=== PATIENT | male | born 1975 | race Caucasian/White ===

== ENCOUNTER 2020-07-26 09:37 | Outpatient (REF) | payer SELFPAY ==
[2020-07-26 10:14] LABS: MANUAL DIFF FLAG NO
[2020-07-26 10:19] LABS: Basophils Percent Auto 0.3 % (0-2); Eosinophils Absolute Auto 0.1 X10*3/uL (0.0-0.4); Eosinophils Percent Auto 1.5 % (0-4); Hematocrit 41.4 % (42-52); Hemoglobin 13.5 g/dl (14.0-18.0); Imm Gran Abs Auto 0.01 X10*3/uL (0.00-0.03); Imm Gran Pct Auto 0.2 % (0.0-0.4); Lymphocytes Absolute Auto 1.8 X10*3/uL (1.2-4.9); Mean Corpuscular HGB Conc 32.6 g/dl (31.0-36.0); Mean Corpuscular Hemoglobin 29.2 pg (27.0-33.0); Mean Corpuscular Volume 89.4 fL (80-98); Mean Platelet Volume 10.6 fL (9.4-12.4); Monocytes Absolute Auto 0.5 X10*3/uL (0.1-1.2); Monocytes Percent Auto 7.7 % (2-11); Neutrophils Absolute Auto 3.8 X10*3/uL (2.0-8.3); Neutrophils Percent Auto 61.3 % (45-73); Platelet Count 265 X10*3/uL (160-400); Red Blood Count 4.63 X10*6/uL (4.60-5.80); Red Cell Distribution Width 13.5 % (11.0-16.0); White Blood Count 6.1 X10*3/uL (4.8-10.8)
[2020-07-26 10:37] LABS: Alanine Aminotransferase 19 U/L (0-40); Albumin Level 4.8 g/dL (3.5-5.0); Alkaline Phosphatase 49 U/L (39-117); Anion Gap 14 (12-20); Aspartate Amino Transferase 20 U/L (5-37); Bilirubin Total 0.4 mg/dL (0.0-1.0); Blood Urea Nitrogen 16 mg/dL (9-16); Calcium 9.3 mg/dL (8.4-10.2); Carbon Dioxide 26 mmol/L (22-29); Chloride 104 mmol/L (96-108); Cholesterol 227 mg/dL; Estimated Glomerular Filt Rate > 60; Glucose Fasting 91 mg/dL (60-99); HDL Cholesterol 48 mg/dL; LDL Cholesterol Calculated 165 mg/dl; Potassium 4.8 mmol/l (3.3-5.1); Sodium 139 mmol/L (135-145); Total Protein 7.4 g/dL (6.5-8.0); Triglycerides 73 mg/dL
== END 2020-07-26 09:38 | disposition home or self-care (01) ==
LOC: HO.LAB 09:37
PROVIDERS: PCP Internal Medicine; Visit Provider Internal Medicine
DX: Z00.00 Encounter for general adult medical examination without abnormal findings (principal)
CPT/HCPCS: 36415; 80053; 80061; 85025

== ENCOUNTER 2021-05-07 09:00 | Outpatient (REF) | payer BC, SELFPAY ==
--- NOTE | ~2021-05-07 | XR_ITS ---
EXAMINATION: XR SHOULDER, LEFT CLINICAL INFORMATION: Left shoulder pain. COMPARISON: None TECHNIQUE: AP, scapular Y, and axillary views of the left shoulder. FINDINGS: The bones and soft tissues are normal. No fracture. Glenohumeral and acromioclavicular alignment is anatomic with normal joint space. No abnormal soft tissue calcifications. XR/XR shoulder LT min 2V IMPRESSION: Unremarkable examination.
== END 2021-05-07 09:01 | disposition home or self-care (01) ==
LOC: HO.HOSX 09:00
PROVIDERS: Visit Provider Physician Assistant
DX: M75.102 Unspecified rotator cuff tear or rupture of left shoulder, not specified as traumatic (principal)
CPT/HCPCS: 20610; 73030; J1040

== ENCOUNTER 2021-06-22 09:07 | Outpatient (REF) | payer BC, SELFPAY ==
--- NOTE | ~2021-06-22 | XR_ITS ---
EXAMINATION: RIGHT WRIST X-RAY CLINICAL INFORMATION: Fracture COMPARISON: Previous x-ray and CT of the wrist to from 2013 TECHNIQUE: 4 views of the wrist FINDINGS: There is a transverse fracture of the right distal radius. This appears comminuted with vertical component intra-articular with the radiocarpal joint. Fracture is minimally displaced. There is slight dorsal angulation of the distal radius with respect to the more proximal shaft. No other fracture is seen. Carpal bones are normal. There is overlying soft tissue swelling. XR/XR wrist RT w scaphoid IMPRESSION: Comminuted impacted intra-articular fracture of the right distal radius and overlying soft tissue swelling.
== END 2021-06-22 09:08 | disposition home or self-care (01) ==
LOC: HO.HOSX 09:07
PROVIDERS: PCP Internal Medicine; Visit Provider Physician Assistant
DX: Z01.818 Encounter for other preprocedural examination (principal); S52.501D Unspecified fracture of the lower end of right radius, subsequent encounter for closed fracture with routine healing
CPT/HCPCS: 73110

== ENCOUNTER 2021-06-25 10:14 | Day surgery (SDC) | payer BC, SELFPAY ==
--- NOTE | 2021-06-24 08:53 | P.CONAN_ITS ---
Documented by User: Nathalie Wheeler NP 06/24/21 08:53 HPI - Anesthesia Eval Consult details Narrative: 45yo M for Right Radius Distal Fracture ORIF [facility] Active Problems Active Problems: All Active Problems (Updated 06/22/21 @ 10:39 by Olive Perez PA-C) Distal radius fracture, right (Acute) Painful arc syndrome of left shoulder (Acute) Social History Social History Patient Tobacco Use Status: Former Tobacco user Use of substances other than those prescribed or required for medical reasons: Yes Are you DNR?: No Advance Directives: No Advance Directives Information Provided: Yes Recently lost weight without trying: No Nutrition Risks: No Nutritional Risk Current occupational status: unemployed Current occupation: rt hand Meds Allergies Allergy/AdvReac Type Severity Reaction Status Date / Time No Known Allergies Allergy Verified 06/22/21 09:40 Exam Exam Date and Time: June 24, 2021 0853 Assessment and Plan Assessment Anesthesia Assessment: Chart Reviewed Documented by User: Julianna Weston MD 06/25/21 12:21 [facility] Family History Family history of problems with anesthesia: No Surgical History History of Problems with Anesthesia: No Social History Social History Patient Tobacco Use Status: Former Tobacco user Use of substances other than those prescribed or required for medical reasons: Yes Are you DNR?: No Advance Directives: No Advance Directives Information Provided: Yes Recently lost weight without trying: No Nutrition Risks: No Nutritional Risk Current occupational status: unemployed Current occupation: rt hand Meds Allergies Allergy/AdvReac Type Severity Reaction Status Date / Time No Known Allergies Allergy Verified 06/22/21 09:40 Exam Airway Mallampati Class: II TM Dist: >3cm Neck ROM: Full Assessment and Plan Final Anesthetic Review Family History of Problems with Anesthesia: No History of Problems with Anesthesia: No NPO: Yes ASA Class: I Final Preanesthetic Review: No Changes in Pt Med Stat, Meds/Allgs Chart Reviewed, Consent Obtained/Reviewed and Anes Risks/Benef Reviewed Patient Risk: Low Procedure Risk: Low Anesthetic Plan Anesthetic Plan: GA and Regional Block Disposition: Standard PACU
[2021-06-25] VITALS (7 sets, daily range): BP systolic 120–135; BP diastolic 72–80; PULSE 67–83; RESP 16; TEMP 36.7; O2SAT 93–97; BMI 29.9
--- NOTE | ~2021-06-25 | FL_ITS ---
EXAMINATION: XR FLUOROSCOPY WITH IMAGES CLINICAL INFORMATION: Distal radius fracture ORIF COMPARISON: 06/22/2021 TECHNIQUE: Fluoroscopy performed by Dr. Matthews. Fluoroscopy time: 34.7 seconds DAP: 44811.9 uGycm2 Images: 2 FINDINGS: There is plate and screw fixation of the distal radial metaphyseal fracture. Alignment is near-anatomic. FL/FL guidance in OR IMPRESSION: Fluoroscopic guidance for internal fixation of the distal radial fracture with near-anatomic alignment. Please refer to operative report for further information.
--- NOTE | 2021-06-25 09:57 | P.OP_ITS ---
Operative Note Operative Note Date of Service: 06/25/21 Narrative: Operative Note Narrative: Preop diagnosis: 1. Right Distal radius fracture Postop diagnosis: Same Procedure: 1. Right Distal radius fracture open reduction internal fixation Surgeon: Sonia Matthews MD Anesthesia: Mac plus regional block Findings: Distal Radius fracture Implants: A 3 hole Accu Med volar locking plate, with 5 X 2.3 mm locking pegs/screws, and 3 3.5 mm cortical screws Tourniquet time: 39 minutes EBL: 5.0 ml Specimen: None Drains: None Complications: None Disposition: Brought to the recovery room in stable condition Plan: Follow-up in 10-14 days for wound check, suture removal and postop radiographs The patient will be placed in either a short-arm cast or a volar wrist splint. Encouraged no lifting of anything heavier than a cell phone. Please encourage active and passive range of motion of the digits. Follow-up at 4-5 weeks postop for repeat radiographs. Indications: The patient is a 45 year old man with a right comminuted intra- articular distal radius fracture . The risks and benefits of operative treatment, including but not limited to risk of damage to blood vessels, nerves, tendons, infection, recurrence, persistent pain or numbness, incomplete resolution of preoperative symptoms, or need for further surgery were discussed with the patient and they wished to proceed with surgery. Procedure: Once consent was obtained patient was brought back to the operating suite and placed in the operating table in a supine position. A regional block was performed by the anesthesia team. Perioperative antibiotics and anesthesia was administered by the anesthesia team. A tourniquet was applied to the proximal aspect of the right upper extremity and the limb was prepped and draped in a standard surgical fashion. The limb was elevated exsanguinated with Esmarch bandage and the tourniquet inflated to 250 mm of mercury for a total tourniquet time of 39 minutes. The FluoroScan was used throughout the case to assess our reduction, and f acilitate implant placement. A gentle closed reduction was 1st performed on the patient's right distal radius fracture. Was assessed radiographically before proceeding with the reduction internal fixation. I then made an 8 cm longitudinal incision over the distal aspect of the flexor carpi radialis tendon. The incision was made through the skin to the subcutaneous tissue using a 15. Blade. Then carefully dissected down to flexor carpi radialis tendon she tenotomy scissors. The FCR tendon sheath was then incised longitudinally using tenotomy scissors under direct visualization. The FCR tendon was then retracted ulnarly. I then made a longitudinal incision in the volar forearm fascia through the floor of FCR tendon sheath using tenotomy scissors under direct visualization. I identified the interval between the radial artery and the flexor tendons. This interval was developed further with my index finger, releasing some of the muscular fibers of the flexor pollicis longus. A dull weatlander retractor was then placed. I then created an ulnarly based flap of the pronator quadratus by releasing the radial and distal edges using a 15. Blade. A Nassar elevator was used to elevate the pronator quadratus from the volar surface of the distal radius. This then revealed to us our distal radius fracture. An open reduction was then performed on our distal radius fracture. I then placed a short standard 3 hole Accu Med volar locking plate on the volar surface of the distal radius. I placed a single K-wire through the distal aspect of the plate and into the distal radius. This was assessed using fluoroscopic images. I was satisfied with the placement of our plate. I then placed 5 X 2.3 mm locking screws/pegs in the distal aspect of the plate and distal radius by 1st drilling bicortically with a 1.8 mm drill bit, measuring with a depth gauge, and placing the appropriate length locking screws/pegs. The placement of our plate and screws was then assessed again using fluoroscopic images. The once satisfied with the placement of the volar locking plate and screws on the distal aspect of the distal radius, the plate was then reduced to the shaft of the radius. I then placed 3 3.5 mm cortical screws to the proximal aspect of the plate and into the shaft of the radius. This was done by 1st drilling bicortically with a 2.8 mm drill bit, measuring with a depth gauge, and placing the appropriate length screw. Final radiographs were then obtained. The DRUJ was assessed and found to be stable on exam. I was satisfied with our reduction and placement of all implants. At this point the wound was irrigated with normal saline. The pronator quadratus was reduced back over the volar locking plate using some 3-0 Vicryl suture material. The tourniquet was then deflated and hemostasis was obtained with a brief period of local pressure and bipolar monopolar electrocautery. The subcutaneous layer was then reapproximated using some 4-0 Vicryl suture, and the skin edges were reapproximated using some 5 0 Prolene suture. The wound was then infiltrated with some 1% lidocaine with epinephrine postop pain control. A sterile dressing and a short dorsal splint allowing for active flexion and extension of the digits was applied. The patient appears to have tolerated the procedure well and with no complications. All digits were well vascularized conclusion of the case.
[2021-06-25] MEDS: Lactated Ringers 1,000 ML 100 ML IVCONT (10:49)
== END 2021-06-25 15:41 | disposition home or self-care (01) ==
PROVIDERS: PCP Internal Medicine; Visit Provider Orthopaedic Surgery
PROC: (CPT 25608; principal; 2021-06-25 11:50)
DX: S52.571A Other intraarticular fracture of lower end of right radius, initial encounter for closed fracture (principal); W00.0XXA Fall on same level due to ice and snow, initial encounter; Y93.23 Activity, snow (alpine) (downhill) skiing, snowboarding, sledding, tobogganing and snow tubing; Y92.9 Unspecified place or not applicable; Y99.8 Other external cause status
CPT/HCPCS: 25608; C1713; C1769; J0690; J1100; J2250; J2405; J3010

== ENCOUNTER 2021-07-08 08:26 | Outpatient (REF) | payer BC, SELFPAY ==
--- NOTE | ~2021-07-08 | XR_ITS ---
EXAMINATION: XR WRIST, RIGHT CLINICAL INFORMATION: Pain in right wrist COMPARISON: 06/22/2021 TECHNIQUE: PA, lateral, and oblique views of the right wrist. FINDINGS: Volar plate and screws identified across the comminuted distal radial intra-articular fracture which is in near anatomic alignment. The distal ulna and carpal bones are unremarkable without additional bony findings. Moderate soft tissue swelling. XR/XR wrist RT min 3V IMPRESSION: Near-anatomic alignment of the intra-articular fracture distal radius post ORIF. Normal radiocarpal alignment. Moderate soft tissue swelling is present lateral and anterior to the distal radius, correlate clinically.
== END 2021-07-08 08:27 | disposition home or self-care (01) ==
LOC: HO.HOSX 08:26
PROVIDERS: Visit Provider Orthopaedic Surgery
DX: M25.531 Pain in right wrist (principal); S52.501A Unspecified fracture of the lower end of right radius, initial encounter for closed fracture; W00.0XXA Fall on same level due to ice and snow, initial encounter; Y93.23 Activity, snow (alpine) (downhill) skiing, snowboarding, sledding, tobogganing and snow tubing; Y92.9 Unspecified place or not applicable; Y99.8 Other external cause status; Z87.891 Personal history of nicotine dependence; Z48.02 Encounter for removal of sutures
CPT/HCPCS: 73110

== ENCOUNTER 2021-08-05 08:20 | Outpatient (REF) | payer BC, SELFPAY ==
--- NOTE | ~2021-08-05 | XR_ITS ---
EXAMINATION: XR WRIST, RIGHT CLINICAL INFORMATION: Follow-up fracture COMPARISON: Previous x-rays most recent June 2021 TECHNIQUE: PA, lateral, and oblique views of the right wrist. FINDINGS: There is orthopedic hardware with plate and screws seen in the distal radius transfixing a comminuted intra-articular nondisplaced distal radius fracture. Orthopedic hardware and fracture appear unchanged. No other fracture is seen. Joint spaces are normal. There is soft tissue swelling adjacent to the fracture. XR/XR wrist RT min 3V IMPRESSION: ORIF of right distal radius fracture. No change compared to June 2021 exam.
== END 2021-08-05 08:21 | disposition home or self-care (01) ==
LOC: HO.HOSX 08:20
PROVIDERS: Visit Provider Orthopaedic Surgery
DX: S52.501D Unspecified fracture of the lower end of right radius, subsequent encounter for closed fracture with routine healing (principal); X58.XXXD Exposure to other specified factors, subsequent encounter; Z87.891 Personal history of nicotine dependence
CPT/HCPCS: 73110

== ENCOUNTER 2021-10-16 07:22 | Outpatient (REF) | payer BC, SELFPAY ==
[2021-10-16 07:34] LABS: MANUAL DIFF FLAG NO
[2021-10-16 08:08] LABS: Basophils Percent Auto 0.7 % (0-2); Eosinophils Absolute Auto 0.1 X10*3/uL (0.0-0.4); Eosinophils Percent Auto 2.4 % (0-4); Hematocrit 39.6 % (42.0-52.0); Hemoglobin 12.5 g/dl (14.0-18.0); Imm Gran Abs Auto 0.01 X10*3/uL (0.00-0.03); Imm Gran Pct Auto 0.2 % (0.0-0.4); Lymphocytes Absolute Auto 1.8 X10*3/uL (1.2-4.9); Lymphocytes Percent Auto 41.9 % (20-40); Mean Corpuscular HGB Conc 31.6 g/dl (31.0-36.0); Mean Corpuscular Hemoglobin 29.1 pg (27.0-33.0); Mean Corpuscular Volume 92.1 fL (80.0-98.0); Mean Platelet Volume 10.6 fL (9.4-12.4); Monocytes Absolute Auto 0.4 X10*3/uL (0.1-1.2); Neutrophils Absolute Auto 1.9 x10*3/uL (2.0-8.3); Neutrophils Percent Auto 45.8 % (45-73); Platelet Count 224 X10*3/uL (160-400); Red Cell Distribution Width 13.2 % (11.0-16.0); White Blood Count 4.2 X10*3/uL (4.8-10.8)
[2021-10-16 08:39] LABS: Alanine Aminotransferase 28 U/L (0-40); Albumin Level 4.4 g/dL (3.5-5.0); Alkaline Phosphatase 48 U/L (39-117); Anion Gap 11 (12-20); Aspartate Amino Transferase 40 U/L (5-37); Bilirubin Total 0.8 mg/dL (0.0-1.0); Blood Urea Nitrogen 14 mg/dL (9-16); Calcium 9.5 mg/dL (8.4-10.2); Carbon Dioxide 26 mmol/L (22-29); Chloride 107 mmol/L (96-108); Cholesterol 191 mg/dL; Estimated Glomerular Filt Rate > 60; Glucose Random 88 mg/dL (60-115); HDL Cholesterol 53 mg/dL; LDL Cholesterol Calculated 127 mg/dl; Potassium 4.4 mmol/L (3.3-5.1); Sodium 140 mmol/L (135-145); Total Protein 6.7 g/dL (6.5-8.0); Triglycerides 59 mg/dL
[2021-10-16 09:02] LABS: Prostate Specific Antigen 0.48 ng/mL (<0.05-4.0)
== END 2021-10-16 07:23 | disposition home or self-care (01) ==
LOC: HO.LAB 07:22
PROVIDERS: PCP Internal Medicine; Visit Provider Internal Medicine
DX: Z00.00 Encounter for general adult medical examination without abnormal findings (principal); Z12.5 Encounter for screening for malignant neoplasm of prostate; R35.1 Nocturia
CPT/HCPCS: 36415; 80053; 80061; 84153; 85025

== ENCOUNTER 2023-11-25 07:23 | Outpatient (REF) | payer OTHER, SELFPAY ==
[2023-11-25 07:41] LABS: MANUAL DIFF FLAG NO
[2023-11-25 09:12] LABS: Basophils Percent Auto 0.6 % (0-2); Eosinophils Absolute Auto 0.1 X10*3/uL (0.0-0.4); Eosinophils Percent Auto 2.1 % (0-4); Hematocrit 39.7 % (42.0-52.0); Hemoglobin 13.2 g/dl (14.0-18.0); Imm Gran Abs Auto 0.01 X10*3/uL (0.00-0.03); Imm Gran Pct Auto 0.2 % (0.0-0.4); Lymphocytes Absolute Auto 1.9 X10*3/uL (1.2-4.9); Lymphocytes Percent Auto 34.9 % (20-40); Mean Corpuscular HGB Conc 33.2 g/dl (31.0-36.0); Mean Corpuscular Hemoglobin 29.5 pg (27.0-33.0); Mean Corpuscular Volume 88.8 fL (80.0-98.0); Monocytes Absolute Auto 0.4 X10*3/uL (0.1-1.2); Monocytes Percent Auto 8.2 % (2-11); Neutrophils Absolute Auto 2.9 x10*3/uL (2.0-8.3); Platelet Count 264 X10*3/uL (160-400); Red Blood Count 4.47 X10*6/uL (4.60-5.80); Red Cell Distribution Width 13.4 % (11.0-16.0); White Blood Count 5.4 X10*3/uL (4.8-10.8)
[2023-11-25 10:04] LABS: Alanine Aminotransferase 33 U/L (0-40); Albumin Level 4.4 g/dL (3.5-5.0); Alkaline Phosphatase 42 U/L (39-117); Anion Gap 15 (12-20); Aspartate Amino Transferase 33 U/L (5-37); Bilirubin Total 0.6 mg/dL (0.0-1.0); Blood Urea Nitrogen 16 mg/dL (9-16); Calcium 9.9 mg/dL (8.4-10.2); Carbon Dioxide 24 mmol/L (22-29); Chloride 105 mmol/L (96-108); Cholesterol 229 mg/dL (<200); Estimated Glomerular Filt Rate > 60; Glucose Random 81 mg/dL (60-115); HDL Cholesterol 53 mg/dL (>40); LDL Cholesterol Calculated 159 mg/dL (<100); Potassium 4.2 mmol/L (3.3-5.1); Sodium 140 mmol/L (135-145); Thyroid Stimulating Hormone 1.71 uIU/mL (0.32-4.0); Total Protein 7.4 g/dL (6.5-8.0); Triglycerides 89 mg/dL (<150)
== END 2023-11-25 07:24 | disposition home or self-care (01) ==
LOC: HO.LAB 07:23
PROVIDERS: PCP Internal Medicine; Visit Provider Internal Medicine
DX: R63.5 Abnormal weight gain (principal); E78.00 Pure hypercholesterolemia, unspecified
CPT/HCPCS: 36415; 80053; 80061; 84443; 85025

== ENCOUNTER 2024-01-25 08:56 | Outpatient (AMB) | payer OTHER, SELFPAY ==
--- NOTE | 2024-01-25 09:03 | A.OFFVIS_ITS ---
Vital Signs 01/25/24 09:05 Height 5 ft 11 in Weight 249 lb 1.957 oz BMI 34.7 BP 118/79 Blood Pressure Location Lt brachial Position Sitting Pulse 57 Intake Visit Reasons: colonoscopy screening Intake Note: New patient in office today for colonoscopy screening. CC: Patient denies having any GI symptoms or concerns today. 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 He is referred by asiya Lopez. PMX Obesity-BMI 38 High cholesterol GERD Low back pain with left sciatica History of distal radius fracture-right History of scaphoid fracture * SURGICAL HISTORY Wrist repair adenoidectomy * ALLERGIES: NKDA * [place]/Budist LABS: Laboratory Tests 11/25/23 07:40 WBC 5.4 RBC 4.47 L Hgb 13.2 L Hct 39.7 L MCV 88.8 MCH 29.5 Plt Count 264 Estimated GFR > 60 Total Bilirubin 0.6 AST 33 ALT 33 Alkaline Phosphatase 42 TSH 1.71 TODAY'S VISIT This is his first colonoscopy. NO bowel or upper GI problems, GERD well controlled. There are no prior problems with anesthesia or sedation. He denies any cardiac or respiratory problems. No ID problems. His mother had colon polyps, no CRC known. [facility] Medical History (Updated 01/25/24 @ 15:49 by ZACH Wallace) Pre-op examination Surgical History (Updated 01/25/24 @ 09:11 by DORY Hester) S/P wrist surgery Family History Mother Colon polyps Social History Alcohol intake: current Alcohol intake frequency: a few times a month Patient Tobacco Use Status: Former Tobacco user Substance Use Type: Marijuana Current occupational status: unemployed Current occupation: rt hand Review of Systems Const Denies fatigue, Denies fever(s), Denies night sweats, Denies poor appetite and Denies weight loss ENT Reports Normal hearing present, Denies dental pain, Denies dysphagia, Denies hearing loss, Denies mouth pain, Denies odynophagia, Denies throat swelling, Denies tongue swelling and Reports other (Dentition adequate) Card Reports no additional complaints Resp Reports no additional complaints GI Details: Denies abdominal pain, Denies melena, Denies bloating, Denies hematochezia, Denies constipation, Denies GI cramping, Denies dysphagia, Denies excessive flatus, Denies early satiety, Denies heartburn, Denies diarrhea, Denies nausea, Denies odynophagia, Denies vomiting and Denies hematemesis Skin/Breast Denies pruritus, Denies lesions, Denies rash and Denies jaundice Neuro Reports Normal hearing present and Denies Abnormal speech present Endo Denies fatigue Aller/Immun Denies throat swelling and Denies tongue swelling Physical Exam Vital Signs: Last Vital Signs Pulse 57 01/25/24 09:05 BP 118/79 01/25/24 09:05 BMI result Body Mass Index 34.7 Const General: cooperative, no acute distress, well developed and well groomed Nutritional Appearance: well nourished and obese Orientation/consciousness: oriented to person, oriented to place and oriented to time Limitations: No language barrier HEENT Head: Yes normocephalic and Yes atraumatic Eyes General: appearance normal, both eyes and all related structures Pupils: Equal, round and reactive pupils present Neck Neck: Yes normal visual inspection and Yes no lymphadenopathy Thyroid: Thyroid normal Resp Effort & Inspection: normal respiratory effort and able to speak in complete sentences Auscultation: clear to auscultation bilaterally Cardio Rate: regular rate Rhythm: regular rhythm Heart sounds: Normal, physiologic split S2 sound present Peripheral pulses: radial pulses present and posterior tibial pulses present GI Inspection: No distended, No Abdominal panniculus present and Yes obesity Palpation (GI): Soft to palpation, nontender, no guarding, not rigid and No hepatosplenomegaly present Percussion: Yes normal to percussion Auscultation: normal bowel sounds Rectal Exam - Male: Yes deferred Skin General skin exam: no rashes or lesions noted, turgor normal, skin not dry, no jaundice, No spider nevi and no striae Rashes: no rashes Nails: normal Neuro General: oriented to person, oriented to place and oriented to time Cranial nerves: Yes Equal, round and reactive pupils present and Yes Normal hearing present Speech: No Abnormal speech present Extrem General: Yes normal to inspection, No clubbing, No cyanosis and No edema Psych Appearance: grossly normal and well kempt Mental Status: mental status grossly normal Speech and movement: Normal speech and movement present Affect: normal affect Attitude: cooperative Thought process: Normal thought process present and not confabulating Thought content: Normal thought content present Insight: Fair insight present (Psych) Judgement: Fair judgement present (Psych) Assessment & Plan Assessment & Plan (1) Pre-op examination: Code(s): Z01.818 - Encounter for other preprocedural examination Category: Medical (2) Family history of polyps in the colon: Comment: Mother Code(s): Z83.719 - Family history of colon polyps, unspecified Category: Medical Plan This is his first colonoscopy. NO bowel or upper GI problems, GERD well controlled. There are no prior problems with anesthesia or sedation. He denies any cardiac or respiratory problems. No ID problems. His mother had colon polyps, no CRC known. Orders: Orders Colonoscopy - GI Use Only Today Z01.818 - Encounter for other preprocedural examination Medications: New bisacodyl (Dulcolax (bisacodyl)) 10 mg (2 x 5 mg) PO BEDTIME 4 tabs 0RF 2 days peg 3350-electrolytes 236-22.74-6.74 -5.86 gram (Golytely) until fecal effluent is clear; do not exceed a total volume of 2,000 mL 240 mL PO Q10M 4,000 mL 0RF 1 day Z12.11 - Encounter for screening for malignant neoplasm of colon Coding Level of Care Code New Pt Level 3 (02799) Diagnoses Pre-op examination Z01.818 Family history of polyps in the colon Z83.719
[2024-01-25 09:05] VITALS: BP 118/79; PULSE 57; BMI 34.7
== END 2024-01-25 09:42 | disposition home or self-care (01) ==
PROVIDERS: PCP Internal Medicine; Visit Provider Nurse Practitioner
DX: Z01.818 Encounter for other preprocedural examination (principal); Z83.719 Family history of colon polyps, unspecified
CPT/HCPCS: S0285

== ENCOUNTER → 2024-01-25 08:56 | Outpatient (BNVA) | payer OTHER, SELFPAY | PROVIDERS: PCP Internal Medicine; Visit Provider Nurse Practitioner ==

== ENCOUNTER 2024-02-15 06:33 | Outpatient (REF) | payer OTHER, SELFPAY ==
[2024-02-15 07:35] LABS: Alanine Aminotransferase 22 U/L (0-40); Albumin Level 4.5 g/dL (3.5-5.0); Alkaline Phosphatase 49 U/L (39-117); Anion Gap 13 (12-20); Aspartate Amino Transferase 21 U/L (5-37); Bilirubin Total 0.4 mg/dL (0.0-1.0); Blood Urea Nitrogen 17 mg/dL (9-16); Carbon Dioxide 23 mmol/L (22-29); Chloride 109 mmol/L (96-108); Cholesterol 147 mg/dL (<200); Estimated Glomerular Filt Rate > 60; Glucose Fasting 95 mg/dL (60-99); HDL Cholesterol 49 mg/dL (>40); LDL Cholesterol Calculated 77 mg/dL (<100); Potassium 4.3 mmol/L (3.3-5.1); Sodium 141 mmol/L (135-145); Total Protein 7.4 g/dL (6.5-8.0); Triglycerides 108 mg/dL (<150); Uric Acid 9.2 mg/dL (3.4-7.0)
== END 2024-02-15 06:34 | disposition home or self-care (01) ==
LOC: HO.LAB 06:33
PROVIDERS: PCP Internal Medicine; Visit Provider Internal Medicine
DX: E78.5 Hyperlipidemia, unspecified (principal); M10.9 Gout, unspecified
CPT/HCPCS: 36415; 80053; 80061; 84550

== ENCOUNTER 2024-03-28 09:16 | Outpatient (AMB) | payer OTHER, SELFPAY ==
--- NOTE | 2024-03-28 09:19 | MHC.OFFVIS ---
Vital Signs 03/28/24 09:22 Height 5 ft 11 in Weight 245 lb BMI 34.2 BP 124/77 Blood Pressure Location Lt brachial Position Sitting Pulse 62 Intake Visit Reasons: 2 month follow up Intake Note: Patient follow up for GERD and family hx of colon polyps. Patient denies any GI issues for today. 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 NO bowel or upper GI problems, GERD well controlled. There are no prior problems with anesthesia or sedation. He denies any cardiac or respiratory problems. No ID problems. His mother had colon polyps, no CRC known. Orders: Orders Colonoscopy - GI Use Only Today Z01.818 - Encounter for other preprocedural examination Medications: New bisacodyl (Dulcolax (bisacodyl)) 10 mg (2 x 5 mg) PO BEDTIME 4 tabs 0RF 2 days peg 3350-electrolytes 236-22.74-6.74 -5.86 gram (Golytely) until fecal effluent is clear; do not exceed a total volume of 2,000 mL 240 mL PO Q10M 4,000 mL 0RF 1 day Z12.11 - Encounter for screening for malignant neoplasm of colon COLONOSCOPY BIOPSY TODAY'S VISIT His Cologuard result was negative. I made him aware that we can repeat the test in 3 years but there is a high likelihood at some point that it will become positive given his mother's history of colon polyps. At that time we can consider a colonoscopy going forward. In 3 years he can either be recalled to our office or he can consider asking his primary care provider to order a Cologuard re-screening. [facility] Medical History (Updated 03/28/24 @ 09:28 by ZACH Wallace) Pre-op examination Surgical History S/P wrist surgery Family History Mother Colon polyps Social History Alcohol intake: current Alcohol intake frequency: a few times a month Patient Tobacco Use Status: Former Tobacco user Substance Use Type: Marijuana Current occupational status: unemployed Current occupation: rt hand Review of Systems Const Denies fatigue, Denies fever(s), Denies night sweats, Denies poor appetite and Denies weight loss ENT Denies dental pain, Denies dysphagia, Denies hearing loss, Denies mouth pain, Denies odynophagia, Denies throat swelling, Denies tongue swelling and Reports other (Dentition adequate) Card Reports no additional complaints Resp Reports no additional complaints GI Details: Denies abdominal pain, Denies melena, Denies bloating, Denies hematochezia, Denies constipation, Denies GI cramping, Denies dysphagia, Denies excessive flatus, Denies early satiety, Denies heartburn, Denies diarrhea, Denies nausea, Denies odynophagia, Denies vomiting and Denies hematemesis Skin/Breast Denies pruritus, Denies lesions, Denies rash and Denies jaundice Endo Denies fatigue Aller/Immun Denies throat swelling and Denies tongue swelling Physical Exam Vital Signs: Last Vital Signs Pulse 62 03/28/24 09:22 BP 124/77 03/28/24 09:22 BMI result Body Mass Index 34.2 Const General: cooperative, healthy appearing, alert and awake; No acute distress Nutritional Appearance: average body habitus HEENT Head: Yes normal to inspection Eyes General: appearance normal, both eyes and all related structures Resp Effort & Inspection: normal respiratory effort and able to speak in complete sentences Psych Appearance: grossly normal and well kempt Mental Status: mental status grossly normal Speech and movement: Normal speech and movement present Affect: normal affect Attitude: cooperative Thought process: Normal thought process present Thought content: Normal thought content present Insight: Good insight present (Psych) Judgement: Good judgement present (Psych) Assessment & Plan Assessment & Plan (1) Encounter for colorectal cancer screening using Cologuard test: Comment: 01/2022 COLOGUARD NEGATIVE REPEAT IN 3 YEARS Code(s): Z12.11 - Encounter for screening for malignant neoplasm of colon; Z12.12 - Encounter for screening for malignant neoplasm of rectum Category: Medical Plan His Cologuard result was negative. I made him aware that we can repeat the test in 3 years but there is a high likelihood at some point that it will become positive given his mother's history of colon polyps. At that time we can consider a colonoscopy going forward. In 3 years he can either be recalled to our office or he can consider asking his primary care provider to order a Cologuard re-screening. Coding Level of Care Code Est Pt Level 3 (41967) Diagnoses Encounter for colorectal cancer screening using Cologuard test Z12.11; Z12.12
[2024-03-28 09:22] VITALS: BP 124/77; PULSE 62; BMI 34.2
== END 2024-03-28 09:32 | disposition home or self-care (01) ==
PROVIDERS: PCP Internal Medicine; Visit Provider Nurse Practitioner
DX: Z71.2 Person consulting for explanation of examination or test findings (principal); Z12.11 Encounter for screening for malignant neoplasm of colon
CPT/HCPCS: 99024

== ENCOUNTER → 2024-03-28 09:16 | Outpatient (BNVA) | payer OTHER, SELFPAY | PROVIDERS: PCP Internal Medicine; Visit Provider Nurse Practitioner ==

== ENCOUNTER 2025-04-15 08:14 | Outpatient (AMB) | payer BC, SELFPAY ==
--- NOTE | 2025-04-15 08:18 | MHC.PC.OV ---
Vital Signs 04/15/25 08:19 Height 5 ft 11 in Weight 106.282 kg BMI 32.7 BP 106/86 Respiration 14 Pulse 73 Pulse Source Pulse Oximeter Temp 97.4 F Temp Source Temporal Artery Scan Pulse Oximetry (%) 97 Oxygen Delivery Method Room Air Intake Visit Reasons: Annual Surgeon/President Required: No Accompanied by: Self / Same As Patient Allergies No Known Allergies Allergy (Verified 04/15/25 08:20) Tobacco use date assessed: 04/15/25 Dental Screening Dental Screen Date: 04/15/25 Did you have a dental visit in the last 12 months?: Yes Did you have a dental problem in the last 6 months where you did not have access to dental care?: No Was dental information given to patient?: No HPI HPI Comments History of Present Illness Details 49-year-old male with history of gout, hyperlipidemia presenting to the office today to establish care and for annual physical exam. He lives with his and 2 kids. 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 Rare alcohol use- once every 4-5 weeks. Hx cigarette smoking age 18- 22, the several years in his 20s, 10 years total. No illicit drugs. Uses THC edibles. Gout- stable on allopurinol. Gout flare years ago HLD Obesity- BMI 32.7. Works out 5 days per week, runs 17-20 mi per week, then lifts 45-min 5 days week. Has lost about 30 pounds but has gained muscle weight. Concerns: None [facility] Eye exam UTD, annually. Wears contacts and glasses Dentist twice yearly. Wears sunscreen Reviewed past medical, surgical, family, social history ROS: General: No fevers, malaise, unintentional weight loss HEENT: No blurred vision, diplopia. No sore throat, nasal congestion, rhinorrhea, sinus pain, ear pain. No hearing loss Neck - no adenopathy Cardiovascular: No chest pain, palpitations, or leg edema Respiratory: No shortness of breath, wheezing, cough GI: No dysphagia, odynophagia, globus sensation. No abdominal pain, nausea, vomiting, diarrhea, constipation, melena, hematochezia : No dysuria, hematuria, increased urinary frequency, decreased urinary output. No testicular swelling or pain. No penile discharge MSK: No myalgia, back pain, arthralgias Neuro: No headaches, weakness, paresthesias Psych: no depression/anxiery. No AH/VH. No SI/HI Skin: No rashes or lesions EXAM: Constitutional - Awake and Alert, No apparent distress Eyes - PERRLA, EOMI. Anicteric Ears - external ears normal, canals clear, TMs intact and pearly lanza with good cone of light Nose- septum midline, nares clear, no sinus tenderness Mouth/throat- mucosa moist, tongue and uvula midline, no erythema/edema or tonsillar adenopathy. Neck-trachea midline, thyroid symmetric without palpable nodules, no adenopathy Cardiovascular - S1S2, RRR, No edema Respiratory - Normal lung expansion, Normal respiratory effort, No respiratory distress, CTA bilaterally Gastrointestinal - NT / ND; +BS; No rebound or guarding - No CVA tenderness Extremities - no calf tenderness bilaterally, no swelling Musculoskeletal - Normal inspection, normal ROM Skin - Warm/Dry, no concerning lesions Neurological - Alert & oriented x3, CN II-XII in tact, 5/5 strength BUE and BLE, 2+ patellar reflexes, sensation intact Psychological - Appropriate affect PFSH Medical History (Updated 04/15/25 @ 08:44 by ARTHUR Pierson) Family history of polyps in the colon Gout HLD (hyperlipidemia) Surgical History S/P wrist surgery Family History (Updated 04/15/25 @ 08:36 by ARTHUR Pierson) Mother Colon polyps Father CAD (coronary artery disease) Social History Housing: House Alcohol intake: current Alcohol intake frequency: a few times a month Patient Tobacco Use Status: Former Tobacco user e-Cigarette/Vaping Use: Never Used Substance Use Type: Marijuana service: No Current occupational status: employed Current occupation: rt hand Cognitive needs: No Hearing needs: No Vision needs: Yes (Rx glasses, contacts) Questionnaire PHQ-9 Over the last 2 weeks, how often have you been bothered by any of the following problems? 57600 - PHQ-9 Billing: Patient declined-do not bill (Pt states insurance does not cover) Source: Developed by Drs. Enoch Murray, Mila BMane Holguin and colleagues, with an educational gabriella from [employer]. AUDIT C Alcohol Use Questionnaire (AUDIT-C) 1. How often do you have a drink containing alcohol?: Monthly or less 2. How many drinks containing alcohol do you have on a typical day when you are drinking?: 1 or 2 Total Score: 1 Physical exam (Primary Care) Vital Signs: Last Vital Signs Temp 97.4 F 04/15/25 08:19 Pulse 73 04/15/25 08:19 Resp 14 04/15/25 08:19 BP 106/86 04/15/25 08:19 Pulse Ox 97 04/15/25 08:19 Oxygen Delivery Method Room Air 04/15/25 08:19 BMI result Body Mass Index 32.7 Tobacco/Smoking Status: Tobacco use Status Tobacco use date assessed 04/15/25 04/15/25 08:25 Patient Tobacco Use Status Former Tobacco user 04/15/25 08:18 e-Cigarette/Vaping Use Never Used 04/15/25 08:25 Coding Level of Care Code New Pt Prev Care 40-64y(87238) Diagnoses Routine medical exam Z00.00 HLD (hyperlipidemia) E78.5 Gout M10.9 Assessment & Plan Assessment & Plan (1) Routine medical exam: Code(s): Z00.00 - Encounter for general adult medical examination without abnormal findings Plan: 49-year-old male presenting for annual physical exam as well as to establish care. Plan as below (2) HLD (hyperlipidemia): Code(s): E78.5 - Hyperlipidemia, unspecified Category: Medical Plan: Lipid profile ordered. Continue atorvastatin. Diet low in saturated fats and highly processed foods. Continue with weight loss efforts. (3) Gout: Code(s): M10.9 - Gout, unspecified Category: Medical Plan: Stable. Continue allopurinol. Check uric acid level Plan Routine screening labs as ordered below Continue with screening colonoscopies/cologuard Continue following for annual skin exams and use sun protection Annual eye exams Wear seat belt in car Recommend regular exercise and healthy diet. Commended on weight loss efforts/weight loss Follow up in 1 year Orders: Orders Lipid Panel Today E78.5 - Hyperlipidemia, unspecified, M10.9 - Gout, unspecified, Z00.00 - Encounter for general adult medical examination without abnormal findings Liver Panel Today E78.5 - Hyperlipidemia, unspecified, M10.9 - Gout, unspecified, Z00.00 - Encounter for general adult medical examination without abnormal findings Basic Metabolic Panel Today E78.5 - Hyperlipidemia, unspecified, M10.9 - Gout, unspecified, Z00.00 - Encounter for general adult medical examination without abnormal findings Complete Blood Count Auto Diff Today E78.5 - Hyperlipidemia, unspecified, M10.9 - Gout, unspecified, Z00.00 - Encounter for general adult medical examination without abnormal findings Uric Acid Today M10.9 - Gout, unspecified
[2025-04-15 08:19] VITALS: BP 106/86; PULSE 73; RESP 14; TEMP 36.3; O2SAT 97; BMI 32.7
== END 2025-04-15 08:42 | disposition home or self-care (01) ==
LOC: HO.HMCHD 08:14
PROVIDERS: PCP Internal Medicine; Visit Provider Physician Assistant
DX: Z00.00 Encounter for general adult medical examination without abnormal findings (principal); E78.5 Hyperlipidemia, unspecified; M10.9 Gout, unspecified